=== PATIENT | female | born 2000 | race Caucasian/White ===

== ENCOUNTER → 2020-03-09 | Outpatient (CLI) | payer OTHER, SELFPAY ==
[2018-07-16 18:22] VITALS: BMI 22.5
== END | disposition home or self-care (01) ==
LOC: MTDU 17:32
PROVIDERS: PCP Family Medicine; Referring Provider Family Medicine; Visit Provider Family Medicine
DX: Z20.828 Contact with and (suspected) exposure to other viral communicable diseases (principal)
CPT/HCPCS: 87635; 94799; U0003

== ENCOUNTER → 2020-07-06 17:31 | Outpatient (CLI) | payer OTHER, SELFPAY ==
[2018-07-16 18:22] VITALS: BMI 22.5
== END ==
PROVIDERS: PCP Family Medicine; Referring Provider Family Medicine; Visit Provider Family Medicine
DX: Z20.828 Contact with and (suspected) exposure to other viral communicable diseases (principal)
CPT/HCPCS: 87635; C9803; U0003

== ENCOUNTER 2021-04-25 23:33 | Emergency (ER) | payer OTHER, SELFPAY ==
[2021-04-25 23:33] VITALS: BP 148/89; PULSE 100; RESP 15; TEMP 36.8; O2SAT 100; O2SAT 92; BMI 18.4
[2021-04-25 23:36] VITALS: BP 148/89; PULSE 100; RESP 15; TEMP 36.8; O2SAT 100
--- NOTE | 2021-04-26 00:46 | EDS_ITS ---
HPI History of Present Illness Chief Complaint: General Illness Narrative Narrative: 20-year-old female presenting with fever, chills, nausea, vomiting, diarrhea. Patient states that she started having symptoms yesterday. She does not have abdominal pain. She states she been having trouble holding down food and fluids today. She states that from vomiting she started to have some lower back pain as well. Patient denies any urinary complaints. She denies any vaginal complaints. Patient was not vaccinated for COVID-19. She does deny chest pain. PFSH PFSH Home Medications ondansetron 4 mg PO Q8H PRN PRN #20 tab 04/26/21 [Rx Last Taken Unknown] Allergy/AdvReac Type Severity Reaction Status Date / Time carbinoxamine maleate AdvReac Severe Other Verified 05/11/14 20:05 [From [facility]] pseudoephedrine HCl AdvReac Severe Other Verified 05/11/14 20:05 [From [facility]] Family History Other Asthma Breast cancer Colon cancer Diabetes Heart disease Hypertension Seizures Thyroid disorder Social History Smoking Status: Never smoker [facility] ED Constitutional Constitutional ED: Reports chills and fever(s) Eyes Eyes: Reports blurry vision ENT ENT ED: Reports sore throat; Denies rhinorrhea Cardiovascular Cardiovascular: Denies chest pain or palpitations Respiratory/Chest Respiratory/Chest: Reports cough; Denies dyspnea Gastrointestinal Gastrointestinal: Reports diarrhea, nausea and vomiting; Denies abdominal pain Genitourinary Genitourinary ED: Denies dysuria or hematuria Musculoskeletal Musculoskeletal: Reports back pain and myalgias; Denies arthralgias or neck pain Integumentary Denies Abrasions or rash Neurologic Neurologic: Denies headache(s) or paresthesias EXAM Physical Exam Const Vital Signs: 04/25/21 23:33 04/25/21 23:36 04/25/21 23:37 Temperature 98.2 F 98.2 F Temperature Source Oral Oral Pulse Rate 100 100 Respiratory Rate 15 15 Respiratory Effort Normal Non-Labored Respiratory Pattern Normal Blood Pressure 148/89 H 148/89 H Blood Pressure Mean 108 108 Pulse Ox 100 100 Oxygen Delivery Method Room Air Room Air 04/26/21 01:20 Temperature Temperature Source Pulse Rate 78 Respiratory Rate 15 Respiratory Effort Respiratory Pattern Blood Pressure 129/78 H Blood Pressure Mean Pulse Ox 99 Oxygen Delivery Method Positive well nourished General Appearance ED: NAD; Negative for pallor HEENT Reports moist mucous membranes Negative for trauma Eyes PERRL and EOMs intact bilaterally Resp normal respiratory effort and clear to auscultation bilaterally Cardio regular rate and regular rhythm Back/Spine Back/Spine Narrative: Lateral lumbar paraspinal musculature tenderness. No midline spinal deformity or step-off. No CVA tenderness. Extremity normal to inspection Neuro oriented x3, CN's II-XII intact bilaterally and no sensory deficits noted Sensorium / Orientation: alert Motor Exam: strength 5/5 throughout Psych mental status grossly normal Skin no rashes or lesions noted General Skin Exam: Negative for jaundice or pallor MDM MDM MDM Narrative Medical decision making narrative: Patient tested positive for COVID-19 today. She is only on day 2 of symptoms. She is given Zofran for her nausea and she request Benadryl to help her sleep. I do not believe patient needs blood work. Her oxygen saturations are 100% on room air. She is not having chest pain. She does have some mild lower back pain. I counseled her that she will be taking Tylenol and ibuprofen which should cover this in addition to fevers and chills. She is counseled to hydrate well. I will give her prescription for Zofran. Impression: 1. COVID-19 2. Nausea vomiting 3. Diarrhea Discharge Plan Triage Chief Complaint: General Illness ED Provider: [employer] [facility] Dx/Rx/DC Orders Instructions: Coronavirus Disease 2019 (COVID-19): Caring for Yourself or Others Prescriptions: New ondansetron 4 mg tablet,disintegrating 4 mg PO Q8H PRN PRN (Reason: Nausea) Qty: 20 RF: 0 Primary Care Provider: Roel Bashir Referrals: Roel Bashir MD [Primary Care Provider] - Disposition Disposition: Home, Self Care Discharge Date/Time: 04/26/21 01:21
[2021-04-26] MEDS: DiphenhydrAMINE 12.5 MG/5 ML UDC 25 MG PO (01:17)
[2021-04-26] MEDS: Ondansetron ODT 4 MG Tablet PO (01:17)
[2021-04-26 01:20] VITALS: BP 129/78; PULSE 78; RESP 15; O2SAT 99
== END 2021-04-26 01:21 | disposition home or self-care (01) ==
PROVIDERS: Emergency Provider Student in an Organized Health Care Education/Training Program; PCP Family Medicine
DX: U07.1 COVID-19 (principal); R11.2 Nausea with vomiting, unspecified; R19.7 Diarrhea, unspecified
CPT/HCPCS: 87426; 99283

== ENCOUNTER 2022-10-12 22:59 | Emergency (ER) | payer OTHER, SELFPAY ==
[2022-10-12 23:00] VITALS: BP 156/76; PULSE 81; RESP 16; TEMP 36.2; O2SAT 99; BMI 21.6
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
== END 2022-10-12 23:33 | disposition home or self-care (01) ==
LOC: ED 23:29
PROVIDERS: Emergency Provider Emergency Medicine; PCP Family Medicine; Visit Provider Emergency Medicine
DX: S09.90XA Unspecified injury of head, initial encounter (principal); F07.81 Postconcussional syndrome; R11.0 Nausea; Y08.89XA Assault by other specified means, initial encounter
CPT/HCPCS: 99282

== ENCOUNTER 2024-01-08 18:12 | Emergency (ER) | payer OTHER, SELFPAY ==
[2024-01-08 18:12] VITALS: BP 144/83; PULSE 70; RESP 17; TEMP 36.1; O2SAT 100; BMI 20.2
--- NOTE | 2024-01-08 18:28 | ED.VIS.FEGU ---
HPI HPI - Female History of Present Illness Chief Complaint: Vag Bld, Preg Detail of Chief Complaint: Vaginal bleeding that started earlier this week. Informant: patient Pain Pain: Negative for Pelvic Pain, Vulvar Pain or Vaginal Pain Bleeding Issue: Positive for Vaginal bleeding; Negative for Passing clots or Passing tissue Onset: Days Context: Sudden Onset Timing: Intermittent Current Severity: Spotting Maximum Severity: Spotting Associated Symptoms Associated Symptoms: Positive for Frequency; Negative for Dysuria, Urgency, Hematuria, Missed Period or Irregular Period Test: Positive Sexually: Positive for Active Control: No control P: 0 Ab: 0 Narrative Narrative: Patient is a 23-year-old G1, P0 female who receives her OB care at [facility]. She has a positive blood. She has had a ultrasound which revealed a single live intrauterine . She states she is 13 weeks by dates. She denies any type of pain. She is spotting at best. She attempted get a hold of her [employer]. He was not on-call. She was given the on-call number. She states the on-call number put her back to the office. She was worried and presents. Prior similar symptoms: No Recent Illness/Hospitalization: No PFSH PFSH no medical history Home Medications ?Medication ?Instructions ?Recorded ?Last Taken ?Type ondansetron 4 mg disintegrating 4 mg PO Q8H PRN PRN Nausea #20 tabs 04/26/21 Unknown Rx tablet ondansetron 4 mg disintegrating 4 mg PO Q6H PRN nausea and 10/12/22 Unknown Rx tablet vomiting #15 tabs Allergy/AdvReac Type Severity Reaction Status Date / Time carbinoxamine maleate (From AdvReac Severe Other Verified 01/08/24 18:14 [facility]) pseudoephedrine HCl (From AdvReac Severe Other Verified 01/08/24 18:14 [facility]) Family History Other Asthma Breast cancer Colon cancer Diabetes Heart disease Hypertension Seizures Thyroid disorder no surgical history Social History (Updated 01/08/24 @ 18:[address] Brett Kruse MD) household members: significant other Smoking Status: Never smoker ROS ROS ED Constitutional Constitutional ED: Reports other Details: No fever, chills night sweats. No orthostatic lightheadedness. Eyes Eyes: Reports none ENT ENT ED: Reports none and other Cardiovascular Cardiovascular: Reports hypertension; Denies chest pain, dizziness or orthostatic symptoms Respiratory/Chest Respiratory/Chest: Denies dyspnea or dyspnea on exertion Gastrointestinal Gastrointestinal: Reports none Genitourinary Genitourinary ED: Reports other Details: Patient endorses frequency without hematuria or dysuria. Integumentary Denies unusual bruising or wounds Neurologic Neurologic: Reports none EXAM Physical Exam Const Vital Signs: 01/08/24 18:12 Temperature 96.9 F L Temperature Source Temporal Pulse Rate 70 Respiratory Rate 17 Blood Pressure 144/83 H Blood Pressure Mean 103 Pulse Ox 100 Oxygen Delivery Method Room Air Positive well nourished, well developed, oriented x3, no apparent distress, average body habitus, no limitations and healthy appearing General Appearance ED: active, cooperative, well developed and NAD Orientation / Consciousness: awake Exam Limitations: no limitations HEENT Reports normocephalic and head/scalp atraumatic Nose: external nose normal External Ear: external ears normal Eyes PERRL, EOMs intact bilaterally, conjunctivae normal, no scleral icterus, no papilledema and normal visual hills by confrontation Neck full ROM, nuchal rigidity, no lymphadenopathy and supple Lymph Lymphatic: no lymphadenopathy noted Resp normal respiratory effort and normal air movement Cardio regular rate, regular rhythm, S1 normal heart sound, S2 normal heart sound and no murmurs GI normal to inspection, nondistended, normoactive bowel sounds, soft to palpation, non-tender, non-distended and no masses; Negative for hepatosplenomegaly External Female Exam: normal appearance of the urethra Speculum Exam - Cervix: nulliparous, cervical os closed and other Physiologic white vaginal discharge noted. ; Negative for cervical bleeding Bimanual Exam - Vag & Uterus: normal bimanual exam, normal vaginal palpation, normal cervical palpation, bladder normal to palpation, uterine shape normal, uterine mobility normal and uterine consistency normal; Negative for cervical motion tenderness or cervical tenderness Bimanual Exam - Adnexa, Other: normal adnexae Back/Spine no CVA tenderness Neuro oriented x3, CN's II-XII intact bilaterally and moves all extremities Sensorium / Orientation: awake and alert Speech: speech normal Psych Psych Narrative: Patient is slightly anxious. Appearance: grossly normal, appropriate and well kempt Mood & Affect: euthymic mood Thought Process: normal thought process Thought Content: normal thought content Insight: insight good Judgement: judgement good Skin no rashes or lesions noted, no wounds, skin turgor normal, no jaundice, no petechiae and no mottling Procedures Other Procedures Procedure(s): Transabdominal ultrasound was performed. There is a single live intrauterine fetus noted with heartbeat. Heartbeat was estimated at 140-150. Patient and significant other were shown the fetus on the monitor screen. Discharge Plan Triage Chief Complaint: Vag Bld, Preg ED Provider: Brett Kruse Dx/Rx/DC Orders Clinical Impression: , threatened, Elevated blood pressure reading Instructions: Miscarriage Threatened Prescriptions: No Action ondansetron 4 mg tablet,disintegrating 4 mg PO Q8H PRN PRN (Reason: Nausea) Qty: 20 0RF ondansetron 4 mg tablet,disintegrating 4 mg PO Q6H PRN (Reason: nausea and vomiting) Qty: 15 0RF Primary Care Provider: Roel Bashir Referrals: Roel Bashir MD [Primary Care Provider] - Activity Restrictions/Additional Instructions: Follow-up with your OB as scheduled. Pelvic rest while you are having vaginal bleeding Print Language: Tajik Disposition Disposition: Home, Self Care
[2024-01-08 19:55] VITALS: BP 107/86; PULSE 78; RESP 16; TEMP 37; O2SAT 99
== END 2024-01-08 19:59 | disposition home or self-care (01) ==
LOC: ED 18:48
PROVIDERS: Emergency Provider Emergency Medicine; PCP Family Medicine; Visit Provider Emergency Medicine
DX: O20.0 Threatened abortion (principal); Z3A.13 13 weeks gestation of pregnancy; O16.1 Unspecified maternal hypertension, first trimester
CPT/HCPCS: 99282

== ENCOUNTER 2024-10-31 16:15 | Emergency (ER) | payer OTHER, SELFPAY ==
[2024-10-31 16:16] VITALS: BP 120/73; PULSE 61; RESP 15; TEMP 36.4; O2SAT 100; BMI 24.3
--- NOTE | 2024-10-31 16:58 | RAD_ITS ---
PROCEDURE: FINGER(S) MIN 2 VIEWS 10/31/2024 REASON FOR EXAM: INJURY TECHNIQUE: 3 view(s) of the left 2nd digit COMPARISON: None FINDINGS: No acute fracture. Normal alignment. Soft tissues are unremarkable. RAD/Finger(s) Min 2 Views IMPRESSION: NO ACUTE FRACTURE OR DISLOCATION. Reading Location: [facility]
--- NOTE | 2024-10-31 17:52 | EX.ED.UPPERE ---
HPI History of Present Illness Chief Complaint: Upper Extremity Injury Informant: patient Narrative Narrative: 24-year-old female presenting to the emergency room with left index finger injury. Patient states on Thursday night she got her finger caught in a car door. She denies any external bleeding or laceration. She denies any nail injury. She notes swelling and bruising. Today at work she noticed that the skin in the middle of her finger appeared whitish. She notes that she appears to be able to move the finger. PFSH PFSH Medical History Anxiety Depression Home Medications ?Medication ?Instructions ?Recorded ?Last Taken ?Type NK 10/31/24 Unknown History Allergy/AdvReac Type Severity Reaction Status Date / Time carbinoxamine maleate (From AdvReac Severe Other Verified 10/31/24 16:19 [facility]) pseudoephedrine HCl (From AdvReac Severe Other Verified 10/31/24 16:19 [facility]) Family History Other Asthma Breast cancer Colon cancer Diabetes Heart disease Hypertension Seizures Thyroid disorder Social History household members: significant other Smoking Status: Never smoker ROS ROS ED Constitutional Constitutional ED: Denies chills, fever(s) or weight loss Eyes Eyes: Denies change in vision or diplopia ENT ENT ED: Denies ear pain, rhinorrhea or sore throat Cardiovascular Cardiovascular: Denies chest pain, orthopnea, palpitations or racing heartbeat Respiratory/Chest Respiratory/Chest: Denies cough, dyspnea or orthopnea Gastrointestinal Gastrointestinal: Denies abdominal pain, diarrhea, nausea or vomiting Genitourinary Genitourinary ED: Denies dysuria, hematuria or urinary frequency Musculoskeletal Musculoskeletal: Reports other Details: See history of present illness ; Denies arthralgias or myalgias Integumentary Denies abscess or rash Neurologic Neurologic: Denies headache(s) or weakness Psychiatric Psychiatric: Denies anxiety, depression, suicidal ideation or suicidal thoughts Endocrine Endocrinology: Denies polydipsia, polyphagia or polyuria Allergic/Immunologic Allergic/Immunologic ED: Denies mouth swelling, tongue swelling or urticaria EXAM Physical Exam Const Vital Signs: 10/31/24 16:16 Temperature 97.6 F L Temperature Source Temporal Pulse Rate 61 Respiratory Rate 15 Blood Pressure 120/73 Blood Pressure Mean 88 Pulse Ox 100 Oxygen Delivery Method Room Air Positive well nourished and well developed General Appearance ED: well developed HEENT Reports normocephalic, head/scalp atraumatic and moist mucous membranes Eyes PERRL and EOMs intact bilaterally Neck no lymphadenopathy, supple and no JVD Resp normal respiratory effort and clear to auscultation bilaterally Cardio regular rate, regular rhythm and no murmurs GI normal to inspection, nondistended, normoactive bowel sounds and non-tender Palpation: soft Back/Spine no CVA tenderness and normal ROM Extremity Extremity Narrative: There is swelling and ecchymosis over the dorsal aspect of the left index finger. Functionally the digit is intact testing each joint independently. The distal tip is pink capillary refill less than 2 seconds. There is no fat pad hematoma or significant ecchymosis seen on the volar aspect. General Extremety ED: Negative for edema General Extremity: Negative for edema Neuro oriented x3 and CN's II-XII intact bilaterally Sensorium / Orientation: alert Motor Exam: strength 5/5 throughout Psych mental status grossly normal Mood & Affect: Negative for depressed or tearful Skin no rashes or lesions noted and no wounds MDM MDM MDM Narrative Medical decision making narrative: Differential diagnosis includes but not limited to fracture tendon injury neurovascular injury crush injury My independent interpretation the plain films is no acute fracture. Radiology concurs. Patient to be discharged home with supportive care. Elevation continue to use the finger when able radha wrap for support Tylenol Motrin for pain follow-up as needed return if worsening History & Record Review Discussion w/independent historian: Patient Discharge Plan Triage Chief Complaint: Upper Extremity Injury ED Provider: Akhil Singleton Dx/Rx/DC Orders Clinical Impression: Crush injury to finger, Finger pain Instructions: ED Crush Injury, Hand Prescriptions: No Action NK Primary Care Provider: Roel Bashir Referrals: Roel Bashir MD [Primary Care Provider] - 10-14 Days if not better Print Language: Ghanaian Disposition Disposition: Home, Self Care Discharge Date/Time: 10/31/24 17:38
== END 2024-10-31 17:38 | disposition home or self-care (01) ==
PROVIDERS: Emergency Provider Emergency Medicine; PCP Family Medicine; Visit Provider Emergency Medicine
DX: S67.191A Crushing injury of left index finger, initial encounter (principal); W23.1XXA Caught, crushed, jammed, or pinched between stationary objects, initial encounter
CPT/HCPCS: 73140; 99282